=== PATIENT | female | born 1985 | race Hispanic/Latino ===

== ENCOUNTER 2022-03-21 20:42 | Emergency (ER) | payer SELFPAY ==
[2022-03-21] MEDS ORDERED: Ibuprofen 800 MG TAB ONE (22:16)
== END 2022-03-21 22:19 | disposition home or self-care (01) ==
LOC: BURERS 20:42
DX: F41.0 Panic disorder [episodic paroxysmal anxiety] (principal); R07.2 Precordial pain
CPT/HCPCS: 71046; 93005